=== PATIENT | male | born 1960 | race Caucasian/White ===

== ENCOUNTER 2017-01-25 21:37 | Inpatient (IN) | payer OTHER ==
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
--- NOTE | 2017-01-25 23:07 | XR ---
EXAM: XR Right Humerus, 2 or More Views. CLINICAL HISTORY: Reason: Pain TECHNIQUE: Frontal and lateral views of the right humerus. (Single frontal view of the humerus, and single lateral view that includes the mid humeral shaft through the elbow) COMPARISON: No relevant prior studies available. FINDINGS: Bones: Mildly comminuted fracture of the right humeral head and neck, with mild distraction. The remainder of the humerus appears intact without additional acute displaced fracture nor evidence of dislocation seen. Joints: See above. Also, there is mild enthesopathic change at the distal humeral lateral epicondyle level. Soft tissues: Probable mild soft tissue swelling about the shoulder and possibly elbow where there is bandaging material present. IMPRESSION: Acute proximal right humeral head and neck fracture.
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
--- NOTE | 2017-01-25 23:09 | XR ---
EXAM: XR Right Shoulder, 1 View. CLINICAL HISTORY: Reason: Pain TECHNIQUE: One view of the right shoulder. COMPARISON: Current right humerus series, dictated separately. FINDINGS: Bones: There is a mildly comminuted mildly distracted proximal right humeral fracture involving the head and neck. No ama dislocation is seen on this single image. Joints: See above. Soft tissues: Unremarkable. Lungs: Partially included is right apical pleural-parenchymal thickening, nonspecific. IMPRESSION: Acute proximal right humeral head and neck fracture.
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
[2017-01-25] MEDS ORDERED: HYDROmorphone 1 MG/ML 1 ML SYRINGE IVP STA (23:42)
[2017-01-26] MEDS ORDERED: ONDANSETRON 4 MG/2 ML VIAL IVP PRN (02:15)
[2017-01-26] MEDS ORDERED: NALOXONE 0.4 MG/ML 1 ML VIAL IV PRN (02:15)
[2017-01-26] MEDS ORDERED: LORazepam 2 MG/ML SYRINGE IV PRN ×3 (02:20)
[2017-01-26] MEDS ORDERED: THIAMINE 100 MG/ML 2 ML VIAL IM STA (02:20)
[2017-01-26] MEDS ORDERED: ACETAMINOPHEN IV (For NPO) 1,000 MG in EMPTY BAG 1 BAG IVPB STA (02:52)
[2017-01-26 03:22] LABS: Basophils # (A) 0.1 k/uL (0-0.2); Basophils % (A) 1 %; CH 32.1; CHCM 35.2; Eosinophils # (A) 0.1 k/uL (0-0.7); Eosinophils % (A) 1 %; HCT 32.2 % (39.0-53.0); HDW 2.18; HGB 11.1 gm/dL (13.0-17.5); Luc % (Auto) 1; Lymphocytes # (A) 1.1 k/uL (1.0-4.8); Lymphocytes % (A) 11 %; MCH 31.6 pg (25.0-35.0); MCHC 34.5 g/dL (31.0-37.0); MCV 91.7 fL (80.0-100.0); Mean Platelet Volume 6.4; Monocytes # (A) 0.6 k/uL (0-1.0); Monocytes % (A) 6 %; Neutrophils % (A) 81 %; RBC 3.51 m/uL (4.30-5.90); RDW 13.8 % (11.5-15.5); WBC 9.9 k/uL (3.8-10.6); WBC (Perox) 10.16
[2017-01-26 03:30] LABS: Anion Gap 7 mmol/L; Blood Urea Nitrogen 9 mg/dL (9-20); Calcium 8.4 mg/dL (8.4-10.2); Carbon Dioxide 26 mmol/L (22-30); Chloride 94 mmol/L (98-107); Glucose 103 mg/dL (74-99); Magnesium 2.1 mg/dL (1.6-2.3); Non-African American GFR(MDRD) >60 (>60 ml/min/1.73 sqM); Potassium 3.8 mmol/L (3.5-5.1); Sodium 127 mmol/L (137-145)
[2017-01-26 03:42] LABS: Alcohol <10 mg/dL
[2017-01-26] MEDS: SODIUM CHLORIDE 0.9% 1,000 ML IV SCH ×2 (05:36→08:43)
[2017-01-26] MEDS: HYDROmorphone 1 MG/ML 1 ML SYRINGE IV PRN ×2 (05:39→08:42)
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
[2017-01-26] MEDS: HYDROcodone/APAP 7.5-325MG 1 EACH TAB PO PRN ×4 (10:52→23:10)
[2017-01-26] MEDS: THIAMINE 100 MG TAB PO SCH (19:01)
[2017-01-27] MEDS: SODIUM CHLORIDE 0.9% 1,000 ML IV SCH ×2 (04:22→17:51)
[2017-01-27] MEDS: HYDROcodone/APAP 7.5-325MG 1 EACH TAB PO PRN ×4 (04:46→22:13)
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
--- NOTE | 2017-01-27 12:15 | P.PN ---
Subjective Principal diagnosis: Right proximal humerus fracture Patient seen at bedside today. He continues to have right upper arm and shoulder pain as expected. He has a minimally displaced right proximal humerus fracture. He is pending transfer to an extended care facility for rehab as he has no help at home and difficulty with mobilization. He is also being followed by Dr. Nehemiah Sanchez PA-C for his L3 compression fracture. He is scheduled to follow up with Dr. Camara in office this following February 01 for reassessment and consideration for further possible surgical intervention regarding his right proximal humerus fracture. He has no new complaints today. He denies numbness or tingling. Review of systems is negative for fever, chills, chest pain, shortness breath or other. Objective - Vital Signs Vital signs: Vital Signs Temp 97.6 F 01/27/17 07:00 Pulse 74 01/27/17 07:00 Resp 16 01/27/17 07:00 BP 139/79 01/27/17 07:00 Pulse Ox 96 01/27/17 07:00 Intake & Output 01/26/17 01/27/17 01/27/17 18:59 06:59 18:59 Intake Total 720 Output Total 600 650 Balance 120 -650 Intake: Oral 720 Output: Urine 600 650 Other: Voiding Method Urinal # Voids 1 5 2 - Exam Inspection of the right upper extremity is benign. He has a repaired laceration wound with sutures in place. There is no acute bleeding or drainage. Range of motion of the shoulders not tested due to his fracture. Neurovascular status intact to the right upper extremity with sensation and motor at the elbow, wrist, hand and fingers. 2+ radial pulses present. Less than 2 second cap refill is present. Sensation to light touch is intact throughout the right upper extremity. - Constitutional General appearance: Present: no acute distress - Psychiatric Psychiatric: Present: A&O x's 3, appropriate affect, intact judgment & insight - Labs CBC & Chem 7: 01/26/17 03:15 01/26/17 03:15 Assessment and Plan (1) Fracture of head of right humerus Narrative/Plan: This patient and his x-rays have been reviewed with Dr. Camara. We recommended further initial nonoperative management including sling to the right upper extremity, nonweightbearing, pain management and activity modification. He'll transfer to extended care facility for rehab. He is to follow-up with Dr. Camara within 7 days in office which he currently is scheduled for February 01. We will make further recommendations at that time Status: Acute Time with Patient: Less than 30
[2017-01-27] MEDS: THIAMINE 100 MG TAB PO SCH ×2 (17:50→17:51)
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
[2017-01-28] MEDS: HYDROcodone/APAP 7.5-325MG 1 EACH TAB PO PRN ×3 (04:52→12:53)
[2017-01-28] MEDS: SODIUM CHLORIDE 0.9% 1,000 ML IV SCH ×2 (04:54→12:54)
[2017-01-28 07:12] LABS: Anion Gap 8 mmol/L; Blood Urea Nitrogen 5 mg/dL (9-20); Calcium 8.2 mg/dL (8.4-10.2); Carbon Dioxide 24 mmol/L (22-30); Chloride 96 mmol/L (98-107); Glucose 85 mg/dL (74-99); Non-African American GFR(MDRD) >60 (>60 ml/min/1.73 sqM); Potassium 3.7 mmol/L (3.5-5.1); Sodium 128 mmol/L (137-145)
--- NOTE | 2017-01-28 09:33 | P.PN ---
Subjective Principal diagnosis: Right proximal humerus fracture Patient seen at bedside today. He continues to have right upper arm and shoulder pain as expected. He has a minimally displaced right proximal humerus fracture. He is pending transfer to an extended care facility for rehab as he has no help at home and difficulty with mobilization. He is also being followed by Laura Sweeney PA-C for his L3 compression fracture. He is scheduled to follow up with Dr. Camara in office this following February 01 for reassessment and consideration for further possible surgical intervention regarding his right proximal humerus fracture. He has no new complaints today. He denies numbness or tingling. Review of systems is negative for fever, chills, chest pain, shortness breath or other. Objective - Vital Signs Vital signs: Vital Signs Temp 98.0 F 01/28/17 01:05 Pulse 75 01/28/17 01:05 Resp 16 01/28/17 01:05 BP 124/66 01/28/17 01:05 Pulse Ox 99 01/28/17 01:05 Intake & Output 01/27/17 01/28/17 01/28/17 18:59 06:59 18:59 Intake Total 120 Output Total 650 300 Balance -650 -300 120 Intake: Oral 120 Output: Urine 650 300 Other: Voiding Method Urinal # Voids 1 1 - Exam Inspection of the right upper extremity is benign. He has a abrasion wound at the right posterior upper arm. The bandage was taken down and revealed a healing wound with no signs of infection. There is no purulent drainage. Range of motion of the shoulders not tested due to his fracture. Neurovascular status intact to the right upper extremity with sensation and motor at the elbow , wrist, hand and fingers. 2+ radial pulses present. Less than 2 second cap refill is present. Sensation to light touch is intact throughout the right upper extremity. - Constitutional General appearance: Present: no acute distress - Psychiatric Psychiatric: Present: A&O x's 3, appropriate affect, intact judgment & insight - Labs CBC & Chem 7: 01/26/17 03:15 01/28/17 06:31 Labs: Abnormal Lab Results - Last 24 Hours (Table) 01/28/17 Range/Units 06:31 Sodium 128 L (137-145) mmol/L Chloride 96 L (98-107) mmol/L BUN 5 L (9-20) mg/dL Creatinine 0.58 L (0.66-1.25) mg/dL Calcium 8.2 L (8.4-10.2) mg/dL Assessment and Plan (1) Fracture of head of right humerus Narrative/Plan: This patient and his x-rays have been reviewed with Dr. Camara. We recommended further initial nonoperative management including sling to the right upper extremity, nonweightbearing, pain management, wound care and activity modification. His dressing was changed today. He is pending transfer to extended care facility for rehab. He is to follow-up with Dr. Camara within 7 days in office which he currently is scheduled for February 01. We will make further recommendations at that time. Status: Acute Time with Patient: Less than 30
[2017-01-28 13:00] VITALS: BP 155/75; PULSE 78; RESP 15; TEMP 98
== END 2017-01-28 13:12 | DRG 543 ==
LOC: EC 21:37 → 3SUR 01-26 04:27
PROVIDERS: ADMIT Orthopaedic Surgery Sports Medicine; ATTEND Orthopaedic Surgery Sports Medicine
PROC: 0HQDXZZ Repair Right Lower Arm Skin, External Approach (ICD-10-PCS; principal; 2017-01-26)
PROC: 2W38X1Z Immobilization of Right Upper Extremity using Splint (ICD-10-PCS; 2017-01-26)
DX: M48.56XA Collapsed vertebra, not elsewhere classified, lumbar region, initial encounter for fracture (principal); S42.214A Unspecified nondisplaced fracture of surgical neck of right humerus, initial encounter for closed fracture; E87.1 Hypo-osmolality and hyponatremia; I10 Essential (primary) hypertension; M41.80 Other forms of scoliosis, site unspecified; S51.011A Laceration without foreign body of right elbow, initial encounter; E78.5 Hyperlipidemia, unspecified; E03.9 Hypothyroidism, unspecified; F10.129 Alcohol abuse with intoxication, unspecified; M54.30 Sciatica, unspecified side; F17.210 Nicotine dependence, cigarettes, uncomplicated; Z86.14 Personal history of Methicillin resistant Staphylococcus aureus infection; V43.52XA Car driver injured in collision with other type car in traffic accident, initial encounter
CPT/HCPCS: 12032; 36415; 71010; 72110; 80048; 80306; 80320; 83735; 85025; 96365; 96372; 96375; 99285

== ENCOUNTER → 2018-08-10 | Outpatient (CLI) | payer BC ==
--- NOTE | 2018-08-10 09:57 | CT ---
EXAMINATION TYPE: CT chest w con DATE OF EXAM: 08/10/2018 COMPARISON: NONE HISTORY: Uncertain behavior neoplasm of trachea, bronchus and lung CT DLP: 357 mGycm. Automated Exposure Control for Dose Reduction was Utilized. TECHNIQUE: CT scan of the thorax is performed following with IV Contrast, patient injected with 100 mL of Isovue 300. FINDINGS: LUNGS: There is background moderate emphysematous change with moderate left apical pleural/parenchyma l scarring. There is large destructive heterogeneous right apical mass or neoplasm measuring roughly 9.5 x 8.1 cm axial image 12 that is invading chest wall. There is destruction of portion of right fir st second, third, fourth, and fifth ribs. Most prominent destruction is of the right second through f ourth ribs involving posterior and lateral aspects. There is destruction of right fourth transverse p rocess axial image 12 with lesion felt to extending into neural foramina at this level axial image 11 . Craniocaudal extension of mass is roughly 7-8 cm coronal image 50. Lesion abuts the exiting neural foramina on the upper thoracic spine T3 level also without definitive spinal canal involvement. There is no definitive vertebral body destruction. Scapula is felt intact. No satellite nodules are seen. No pleural effusion or pneumothorax is noted bilaterally. MEDIASTINUM: There is right tracheobronchial and hilar confluent adenopathy measuring 2.4 x 2.1 cm o n axial image 30. No cardiomegaly or pericardial effusion is seen. Coronary artery calcification is present which is noted marker for coronary artery disease. OTHER: Moderate calcified plaque of aorta extending into branch vessels is seen. Underlying scoliosis is present. There is exaggerated upper cervical kyphosis. IMPRESSION: Large destructive right apical mass with confluent right hilar and tracheobronchial adeno constance consistent with known neoplasm as detailed above. No prior CT or PET/CT for comparison at this institution.
== END | disposition home or self-care (01) ==
LOC: RADCTMAIN 08:16
PROVIDERS: ATTEND Family Medicine
DX: D38.1 Neoplasm of uncertain behavior of trachea, bronchus and lung (principal); R91.8 Other nonspecific abnormal finding of lung field; M89.8X8 Other specified disorders of bone, other site
CPT/HCPCS: 71260; Q9967

== ENCOUNTER → 2018-08-12 | Outpatient (CLI) | payer BC, OTHER ==
--- NOTE | 2018-08-12 13:47 | NM ---
EXAMINATION TYPE: NM bone scan whole body DATE OF EXAM: 08/12/2018 COMPARISON: CT chest from 2 days ago. Right humeral x-ray January 25, 2017 HISTORY: Recurrent injury April 2018 right shoulder with pain. History of fracture January 2017. History of right hip fracture. Delayed whole-body scanning was performed following the injection of 24.3 mCi Tc 99m MDP. Images acq uired 3 hours post injection. Whole body images are acquired. Additional spot images of the thorax ab domen and pelvis are acquired. FINDINGS: There is lucency consistent with prosthesis involving the right hip. There is nonspecific increased s urrounding uptake noted. There is mild slight increased uptake in the proximal humeral metaphysis. I would expect more uptake if there was recurrent acute or subacute fracture at this level. Predominately sclerosis is seen on r ecent CT without definitive new suspicious linear lucency. There is lucency in the right lung apex at area of destructive mass. There is no convincing evidence of suspicious osseous uptake to suggest metastatic disease to the bon e. IMPRESSION: As above
== END ==
LOC: RADNMMAIN 09:52
PROVIDERS: ATTEND Orthopaedic Surgery
DX: R93.7 Abnormal findings on diagnostic imaging of other parts of musculoskeletal system (principal); Z98.890 Other specified postprocedural states
CPT/HCPCS: 78306; A9503

== ENCOUNTER → 2018-08-27 | Outpatient (CLI) | payer BC ==
--- NOTE | 2018-08-29 13:22 | PE ---
Nuclear medicine PET/CT HISTORY: Lung carcinoma, initial Patient received 13.5 mCi F-18 FDG intravenously in delayed scanning was performed from the skull bas e to the mid thighs. Localization and attenuation correction CT scan was also performed. Correlation to CT chest 08/10/2018, nuclear medicine bone scan 08/12/2015 Neck and CHEST: There is a large soft tissue mass at the right lung apex extending to the soft tissue s in the paraspinal location beyond the level of the pleura and musculature deep to the right scapula , mass measures approximately 11 cm in greatest dimension with lytic destruction of multiple ribs, SANTOS V 14.6. Apical emphysematous changes are present. Stellate density present within the right hilum, SANTOS V 10.5. No pleural or pericardial effusion. Apical scarring noted on the left. Abdomen pelvis: No additional suspicious hypermetabolic uptake. No evident adrenal mass or retroperit roper adenopathy. Aorta shows atheromatous change. Osseous structures: Postop change noted to the right hip. Spinal curvature noted in the lumbar spine. First through fifth ribs on the right show lytic changes, bone destruction which is extensive. IMPRESSION: Large chest wall and apical destructive mass on the right, abnormal right hilar uptake as described.
== END | disposition home or self-care (01) ==
LOC: RADPETMAIN 13:20
PROVIDERS: ATTEND Internal Medicine Hematology & Oncology
DX: C34.81 Malignant neoplasm of overlapping sites of right bronchus and lung (principal)
CPT/HCPCS: 78815; A9552

== ENCOUNTER → 2018-09-09 | Day surgery (SDC) | payer BC ==
[2018-09-07 10:13] VITALS: BMI 16.2
[~2018-09-09] MED LIST: ALBUTEROL NEB (CONC) 2.5 MG/0.5 ML INHALATION ONE; GLYCOPYRROLATE 0.2 MG/ML 2 ML VIAL ONE; KETAMINE 10 MG/ML 20 ML VIAL ONE; LACTATED RINGERS 1,000 ML IV ONE; LACTATED RINGERS 1,000 ML IV SCH; LIDOCAINE 1% INJ 10MG/ML (20 ML MDV) ONE; LIDOCAINE 2% (PF) 20 MG/ML 2 ML AMP INHALATION ONE; LIDOCAINE VISCOUS 2% 15 ML CUP TOPICAL ONE; MIDAZOLAM 2 MG/2 ML VIAL ONE; PROPOFOL 10 MG/ML 20 ML VIAL IV ONE
[2018-09-09 10:59] VITALS: RESP 16; TEMP 98
--- NOTE | 2018-09-09 13:06 | P.PCN ---
Date of Procedure: 09/09/18 Preoperative Diagnosis: Right Upper lobe mass Postoperative Diagnosis: Right upper lobe mass Procedure(s) Performed: Flexible bronchoscopy, transbronchial needle aspirate of right hilar lymph nodes , transbronchial biopsy of the right upper lobe opacity , BAL of the right upper lobe Anesthesia: MAC Surgeon: Kayla Loya Refrigeration Manager #1: Vivienne Rodriguez Estimated Blood Loss (ml): 10 Pathology: other Condition: stable Disposition: same day Operative Findings: This procedure was done under conscious sedation. The procedure including the potential complications with explained the patient at length. After achieving adequate sedation, the flexible bronchoscope was inserted to the right nostril was advanced upper airway. Examination of the posterior oropharynx, larynx, epiglottis and vocal cords were all within normal limits and there was no upper airway abnormalities. A total of 2 mL of 1% lidocaine was applied to the vocal cords and following that the bronchoscope was advanced into the upper trachea and examination tracheal bronchial tree was done. Trachea was within normal. Examination of left side. Left mainstem bronchus upper and left lower lobe bronchus were all patent along with various segments and subsegments. Examination of the right side showed that the patient had a normal right mainstem bronchus. The distal right mainstem bronchus, anteriorly, there was a element of extrinsic compression probably related to the hilar lymph node. The right upper lobe bronchus was narrowed specially in the apical inferior segments. No endobronchial tumors at least identified. The bronchoscope was moved to the bronchus intermedius and the right middle lobe and the right lower lobe bronchi and the various segments are all patent and within normal limits. The bronchoscope was then moved to the right hilar area and under direct visualization transbronchial needle aspirate/ ESCOBAR needle biopsy of the right hilar lymph node was done at the site of the endobronchial protrusion/extrinsic compression. A total of 3 passes were obtained using a 21-gauge histology needle. Following that, under fluoroscopic guidance, transbronchial biopsies of the right upper lobe opacity was done. Multiple passes were taken without any complications. At the end of the procedure a quick bronchioloalveolar lavage of the right upper lobe was done with a total of 180s of fluid was infused and 50-20 mL was suctioned back. The patient tolerated the procedure well without any complications. Bronchoscope was removed and the patient was transferred recovery in stable condition. Chest x-ray will be done and if it's negative the patient will be discharged home once cleared by anesthesia.
[2018-09-09 13:35] VITALS: BP 137/78
--- NOTE | 2018-09-09 13:35 | XR ---
EXAMINATION TYPE: XR chest 1V portable DATE OF EXAM: 09/09/2018 COMPARISON: 01/25/2017 HISTORY: Status post bronchoscopy to the right upper lobe. TECHNIQUE: Single frontal view of the chest is obtained. FINDINGS: No discrete pneumothorax however there is new marked right upper lobe consolidation, likel y postbiopsy hemorrhage and progression of thickening of the right pleura. Therefore short-term follo w-up is recommended. Left apical linear probable atelectasis is also now seen. Pulmonary hyperinflati on compatible with underlying COPD is present. Cardia mediastinal silhouette is within normal limits IMPRESSION: New consolidation within the right upper lobe, likely post biopsy hemorrhage with thicke kuldeep of the right apical pleural surface. No discrete pneumothorax is seen although given the above f indings short-term follow-up is recommended.
--- NOTE | 2018-09-09 13:36 | FL ---
EXAMINATION TYPE: FL bronchoscopy DATE OF EXAM: 09/09/2018 COMPARISON: NONE HISTORY: Bronchoscopy fluoroscopic documentation. TECHNIQUE: Fluoroscopy. FINDINGS/IMPRESSION: Fluoroscopic guidance was provided during procedure performed by Dr. Loya. A total of 1.22 minutes of fluoroscopic time was utilized during the procedure and 1 spot images was acquired.
[2018-09-09 14:19] VITALS: PULSE 79
== END | disposition home or self-care (01) ==
LOC: ORWHC2ENDO 10:42
PROVIDERS: ATTEND Internal Medicine Critical Care Medicine
DX: C34.01 Malignant neoplasm of right main bronchus (principal); J44.9 Chronic obstructive pulmonary disease, unspecified; R63.4 Abnormal weight loss; E03.9 Hypothyroidism, unspecified; E78.5 Hyperlipidemia, unspecified; Z87.891 Personal history of nicotine dependence; Z79.891 Long term (current) use of opiate analgesic; Z79.899 Other long term (current) drug therapy; Z88.0 Allergy status to penicillin; Z91.030 Bee allergy status
CPT/HCPCS: 94640; 88108; 88305; 88173; 71045; 31628; 31629; 31624; J2250; J2001 ×2; J2704